=== PATIENT | male | born 1965 | race African-American/Black ===

== ENCOUNTER 2016-08-26 13:42 | Outpatient (RCR) | payer BC, MEDICARE ==
[~2016-08-26] VITALS: Ht 188 cm; Wt 105.4 kg
[2016-08-26] VITALS (7 sets, daily range): BP systolic 106–128; BP diastolic 71–82; PULSE 93–99; TEMP 98–98.5
[~2016-08-26 13:42] MED LIST: ATROVENTNS0.03% NS; BACTRIM 400 MG-1 TAB PO; CALCIUM CITRATE1 TA1 PO; CELLCEPT 5500 MG/TAB PO; COLACE 100100 MG/CAP PO; COUMADIN 1MG1 MG/TAB PO; COUMADIN 5MG5 MG/TAB PO; HUMALOG PEN100 U/ML SQ; LANTUS100 U/ML SC; LASIX 40MG TABL40 MG PO; LOPRESSOR 225 MG/TAB PO; LOVAZA1 GM PO; MIRALAX PA17 GM/Dose PO; MULTI VITAMINS1 TAB PO; MYCELEX10 MG/TAB MM; NATURE'S BL400 IU/ML PO; NORVASC 10MG10 MG PO; PRAVACHOL 40MG40 MG PO; PREDNISONE 5MG5 MG PO; PRILOSEC 20MG20 MG PO; PRINIVIL10 MG PO; PROGRAF 0.5MG0.5 MG PO; PROGRAF 1MG1 MG PO; PROGRAF5 MG PO; RAYOS5 MG PO; VALCYTE450 MG PO; XANAX 0.5MG0.5 MG PO; ZITHROMAX500 M2 PO
== END 2016-11-24 | disposition still patient (30) ==
LOC: EUO
DX: T86.810 Lung transplant rejection (principal); Y83.8 Other surgical procedures as the cause of abnormal reaction of the patient, or of later complication, without mention of misadventure at the time of the procedure